=== PATIENT | female | born 1975 | race Caucasian/White ===

== ENCOUNTER 2016-11-12 19:13 | Emergency (ER) | payer OTHER ==
[2016-11-12 20:10] VITALS: BP 123/74
--- NOTE | 2016-11-12 20:20 | UC ---
Throat Pain/Nasal Rafael HPI - HPI Summary HPI Summary: complaint of coughing and nasal congestion that started yesterday sore throat from coughing intermittent headache coughing so hard that she is vomiting 3-4x today, able to drink fluids' feels nauseated, several bouts of diarrhea denies fever and chills took some ibuprofen with minimal relief - History of Current Complaint Chief Complaint: UCRespiratory Stated Complaint: COUGH VOMITING Hx Obtained From: Patient Hx Last Menstrual Period: 11/11/16 - Allergies/Home Medications Allergies/Adverse Reactions: Allergies Allergy/AdvReac Type Severity Reaction Status Date / Time No Known Allergies Allergy Verified 11/12/16 20:10 Home Medications: Home Medications Ibuprofen TAB* [Advil TAB*] 800 mg PO PRN 11/12/16 [History] PMH/Surg Hx/FS Hx/Imm Hx Previously Healthy: Yes Endocrine History Of: Denies: Diabetes, Thyroid Disease Cardiovascular History Of: Denies: Cardiac Disorders, Hypertension Respiratory History Of: Denies: COPD, Asthma GI/ History Of: Reports: Kidney Stones Denies: Ulcer - Surgical History Surgical History: Yes Surgery Procedure, Year, and Place: kidney stones removed on right, kidney "blasting" on the left - 1 year ago - Family History Known Family History: Negative: Cardiac Disease, Hypertension, Diabetes - Social History Occupation: Employed Full-time Lives: With Family Alcohol Use: None Substance Use Type: None Smoking Status (MU): Current Every Day Smoker Type: Cigarettes Amount Used/How Often: 5 CIG/DAY Length of Time of Smoking/Using Tobacco: 5 years Have You Smoked in the Last Year: No When Did the Patient Quit Smoking/Using Tobacco: 1.5 years ago Cessation Counseling: Patient Advised to Stop Review of Systems Constitutional: Fatigue Skin: Negative Eyes: Negative ENT: Sore Throat, Nasal Discharge Respiratory: Cough Cardiovascular: Negative Gastrointestinal: Vomiting Genitourinary: Negative Motor: Negative Neurovascular: Negative Musculoskeletal: Negative Neurological: Headache Psychological: Negative All Other Systems Reviewed And Are Negative: Yes Physical Exam Triage Information Reviewed: Yes Appearance: No Pain Distress, Well-Nourished Vital Signs: Initial Vital Signs Temp 97.4 F 11/12/16 20:07 Pulse 98 11/12/16 20:07 Resp 16 11/12/16 20:07 BP 123/74 11/12/16 20:07 Pulse Ox 97 11/12/16 20:07 Vital Signs Reviewed: Yes Eyes: Positive: Conjunctiva Clear ENT: Positive: Pharyngeal erythema, Nasal congestion, TMs normal Neck: Positive: No Lymphadenopathy Respiratory: Positive: Rhonchi - scattered rhonchi RLL, Wheezing Cardiovascular: Positive: RRR, No Murmur, Pulses Normal Abdomen Description: Positive: Nontender, No Organomegaly, Soft. Negative: CVA Tenderness (R), CVA Tenderness (L), Distended, Guarding Bowel Sounds: Positive: Present. Negative: Hyperactive Musculoskeletal: Positive: No Edema Neurological: Positive: Alert Psychological Exam: Normal Skin Exam: Normal Throat Pain/Nasal Course/Dx - Course Course Of Treatment: exam completed. will rx for anx nad inhaler bronchitis- smoker - Differential Dx/Diagnosis Differential Diagnosis/HQI/PQRI: Pharyngitis, Sinusitis, Tonsillitis, URI Provider Diagnoses: bronchitis, gastroenteritis Discharge - Discharge Plan Condition: Stable Disposition: LONG TERM FACILITY Prescriptions: Azithromycin TAB* [Zithromax TAB (Z-ANNE) 250 mg #6 tabs] 2 tab PO .TODAY, THEN 1 DAILY #1 anne Patient Education Materials: Acute Bronchitis (ED), Wheezing (ED), How to Use a Nebulizer (ED), Acute Nausea and Vomiting (ED) Forms: *Work Release Referrals: Sara Anderson MD [Medical Doctor] - Additional Instructions: Please take antibiotic as directed Use your albuterol inhaler every 4-6 hours when needed for wheezing, shortness of breath or uncontrolled coughing. start zofran and increase fluids Increase fluids and rest Take acetaminophen or ibuprofen for fever or pain Please review your discharge instructions. If your symptoms do not improve please call your primary care provider or return to urgent care.
[2016-11-12] MEDS ORDERED: Ondansetron ODT TAB* 4 MG PO ONE ×2 (20:28→20:38)
[2016-11-12] MEDS ORDERED: Albuterol HFA INHALER* 8 gm MDI INH ONE (20:29)
== END 2016-11-12 20:40 | disposition home or self-care (01) ==
LOC: UCEAST 19:13
DX: J40 Bronchitis, not specified as acute or chronic (principal); K52.9 Noninfective gastroenteritis and colitis, unspecified; F17.210 Nicotine dependence, cigarettes, uncomplicated
CPT/HCPCS: 99213; A9270-GY; G0463

== ENCOUNTER 2018-07-18 14:36 | Emergency (ER) | payer SELFPAY ==
[2018-07-18 14:53] VITALS: BP 110/65
--- NOTE | 2018-07-18 15:06 | ED ---
Upper Extremity Pain - HPI Summary HPI Summary: [id number] patient presents with left elbow pain status post injury at work today. She reports she was lifting an iced tea been when she felt pain in her elbow. This did not linger and she was able to continue to keep working until about 10:30 when she straightened her arm forcefully and felt return of pain that lingered and progressed throughout the day. She denies numbness, tingling, weakness. She feels better with her elbow in a 90 position and worse when flexing or extending beyond this. (Extension worse than flexion). - History of Current Complaint Chief Complaint: UCUpperExtremity Stated Complaint: ELBOW INJURY Time Seen by Provider: 07/18/18 14:54 Hx Obtained From: Patient Hx Last Menstrual Period: 06/28/18 - Allergies/Home Medications Allergies/Adverse Reactions: Allergies Allergy/AdvReac Type Severity Reaction Status Date / Time No Known Allergies Allergy Verified 07/18/18 14:53 Home Medications: Home Medications NK [No Home Medications Reported] 07/18/18 [History Confirmed 07/18/18] PMH/Surg Hx/FS Hx/Imm Hx Previously Healthy: Yes Endocrine/Hematology History: Denies: Hx Anticoagulant Therapy, Hx Blood Disorders, Hx Diabetes, Hx Thyroid Disease Cardiovascular History: Denies: Hx Hypertension Respiratory History: Denies: Hx Asthma, Hx Chronic Obstructive Pulmonary Disease (COPD) GI History: Denies: Hx Ulcer History: Reports: Hx Kidney Stones - Surgical History Surgery Procedure, Year, and Place: kidney stones removed on right, kidney "blasting" on the left - 1 year ago Infectious Disease History: No Infectious Disease History: Denies: Hx Clostridium Difficile, Hx Hepatitis, Hx Human Immunodeficiency Virus (HIV), Hx of Known/Suspected MRSA, Hx Shingles, Hx Tuberculosis, Hx Known/ Suspected VRE, Hx Known/Suspected VRSA, History Other Infectious Disease, Traveled Outside the [place] in Last 30 Days - Family History Known Family History: Positive: Unknown Negative: Cardiac Disease, Hypertension, Diabetes - Social History Occupation: Employed Full-time - fast food Lives: With Family Alcohol Use: None Hx Substance Use: No Substance Use Type: Reports: None Hx Tobacco Use: Yes Smoking Status (MU): Current Every Day Smoker Type: Cigarettes Amount Used/How Often: 5 CIG/DAY Length of Time of Smoking/Using Tobacco: 5 years Have You Smoked in the Last Year: No Review of Systems Constitutional: Negative Positive: no symptoms reported Positive: Arthralgia Skin: Negative Neurological: Negative Psychological: Normal All Other Systems Reviewed And Are Negative: Yes Physical Exam Triage Information Reviewed: Yes Vital Signs On Initial Exam: Initial Vitals Temp Pulse Resp BP Pulse Ox 98.2 F 90 12 110/65 99 07/18/18 14:47 07/18/18 14:47 07/18/18 14:47 07/18/18 14:47 07/18/18 14:47 Vital Signs Reviewed: Yes Appearance: Positive: Well-Appearing, Pain Distress - no pain at rest- holding Lt arm in flexed position at 90 degrees which feels best Skin: Positive: Warm, Skin Color Reflects Adequate Perfusion, Dry - no erythema , no ecchymosis, edema, no skin breakdown over affected area Head/Face: Positive: Normal Head/Face Inspection Eyes: Positive: EOMI ENT: Positive: Hearing grossly normal Respiratory/Lung Sounds: Positive: Breath Sounds Present Cardiovascular: Positive: Pulses are Symmetrical in both Upper and Lower Extremities Musculoskeletal: Positive: Strength/ROM Intact, Pain @ - distal tricep tendon insertion TTP - no gross deformity - no weakness Neurological: Positive: Normal, Sensory/Motor Intact, Alert, Oriented to Person Place, Time, CN Intact II-III Psychiatric: Positive: Normal Diagnostics - Vital Signs Vital Signs Temp Pulse Resp BP Pulse Ox 07/18/18 14:47 98.2 F 90 12 110/65 99 - Laboratory Lab Statement: Any lab studies that have been ordered have been reviewed, and results considered in the medical decision making process. Course/Dx - Course Course Of Treatment: XR: no fx, no OA, no effusion. suspect strain - Diagnoses Provider Diagnoses: Strain of left elbow Discharge - Sign-Out/Discharge Documenting (check all that apply): Patient Departure All imaging exams completed and their final reports reviewed: Yes - Discharge Plan Condition: Stable Disposition: HOME Patient Education Materials: Elbow Sprain (ED), How to Use a Sling (ED) Forms: *Work Release Referrals: [facility] [Outside] Additional Instructions: REST, ICE, ELEVATE AND YULISSA WRAP FOR COMFORT NEEDED. You may use sling over next 48 hours but be sure to remove arm from sling for gentle stretches to prevent stiffness and weakness You may take ibuprofen alternating with acetaminophen as needed for pain Call [facility] tomorrow to schedule follow-up in 1 week. *If you develop numbness, tingling, weakness, swelling or skin discoloration, remove YULISSA wrap and elevate arm for 20 minutes. If symptoms persist, return to ED - Billing Disposition and Condition Condition: STABLE Disposition: Home
--- NOTE | 2018-07-18 15:33 | RAD ---
INDICATION: Left elbow injury. TECHNIQUE: 4 views of the left elbow were obtained. FINDINGS: The bones are in normal alignment. No joint effusion or fracture is seen. Joint spaces appear maintained. IMPRESSION: NO EVIDENCE FOR FRACTURE.
== END 2018-07-18 16:00 | disposition home or self-care (01) ==
LOC: UCEAST 14:36
DX: S56.912A Strain of unspecified muscles, fascia and tendons at forearm level, left arm, initial encounter (principal); X50.9XXA Other and unspecified overexertion or strenuous movements or postures, initial encounter; Y92.9 Unspecified place or not applicable; Y99.0 Civilian activity done for income or pay; F17.200 Nicotine dependence, unspecified, uncomplicated
CPT/HCPCS: 99213; G0463

== ENCOUNTER 2018-10-01 08:34 | Emergency (ER) | payer SELFPAY ==
[2018-10-01 08:47] VITALS: BP 124/69
--- NOTE | 2018-10-01 09:06 | UC ---
Throat Pain/Nasal Rafael HPI - HPI Summary HPI Summary: 43-year-old female presents with 4 day history of headache, nasal congestion, sinus pressure, sore throat, and a nonproductive cough. Denies fever, chills, ear pain, chest pain, shortness of breath, abdominal pain, nausea, or vomiting. - History of Current Complaint Chief Complaint: UCRespiratory Stated Complaint: URI Time Seen by Provider: 10/01/18 08:39 Hx Obtained From: Patient Hx Last Menstrual Period: 09/19/18 Pain Intensity: 6 - Allergies/Home Medications Allergies/Adverse Reactions: Allergies Allergy/AdvReac Type Severity Reaction Status Date / Time No Known Allergies Allergy Verified 07/18/18 14:53 Home Medications: Home Medications Ibuprofen TAB* [Motrin TAB* 600 MG] 10/01/18 [History] PMH/Surg Hx/FS Hx/Imm Hx Previously Healthy: Yes GI/ History: Kidney Stones Other History Of: Negative For: Anticoagulant Therapy - Surgical History Surgical History: Yes Surgery Procedure, Year, and Place: kidney stones removed on right, kidney "blasting" on the left - 1 year ago - Family History Known Family History: Positive: Non-Contributory - Social History Occupation: Employed Full-time Lives: With Family Alcohol Use: None Substance Use Type: None Smoking Status (MU): Current Every Day Smoker Type: Cigarettes Amount Used/How Often: 5 CIG/DAY Length of Time of Smoking/Using Tobacco: 5 years Have You Smoked in the Last Year: No When Did the Patient Quit Smoking/Using Tobacco: 1.5 years ago Household Exposure Type: Cigarettes Review of Systems All Other Systems Reviewed And Are Negative: Yes Constitutional: Positive: Fatigue. Negative: Fever, Chills Eyes: Negative: Drainage, Eye Redness ENT: Positive: Sore Throat, Nasal Discharge, Sinus Congestion. Negative: Ear Ache, Sinus Pain/Tenderness Respiratory: Positive: Cough. Negative: Shortness Of Breath Cardiovascular: Negative: Palpitations, Chest Pain Gastrointestinal: Negative: Abdominal Pain, Vomiting, Diarrhea, Nausea Neurological: Positive: Headache Is Patient Immunocompromised?: No Physical Exam - Summary Physical Exam Summary: GENERAL APPEARANCE: Well developed, well nourished, alert and cooperative, and appears to be in no acute distress. EYES: Conjunctiva clear. No discharge. Vision is grossly intact. EARS: External auditory canals and tympanic membranes clear, hearing grossly intact. NOSE: Mild-moderate nasal cogestion with mucosal erythema and edema. No nasal discharge or sinus tenderness to percussion. THROAT: Mild pharyngeal erythema with cobblestoning. No tonsilar inflammation, swelling, exudate, or lesions. NECK: Neck supple, non-tender without lymphadenopathy. CARDIAC: Normal S1 and S2. No S3, S4 or murmurs. Rhythm is regular. There is no peripheral edema, cyanosis or pallor. Extremities are warm and well perfused. Capillary refill is less than 2 seconds. LUNGS: Clear to auscultation and percussion without rales, rhonchi, wheezing or diminished breath sounds. ABDOMEN: Positive bowel sounds. Soft, nondistended, nontender. No guarding or rebound. No masses or hepatosplenomegally. MUSKULOSKELETAL: ROM intact to all extremities. No joint erythema or tenderness. Normal muscular development. Normal gait. SKIN: Skin normal color, texture and turgor with no lesions or eruptions. Triage Information Reviewed: Yes Vital Signs: Initial Vital Signs Temp 98.6 F 10/01/18 08:40 Pulse 88 10/01/18 08:40 Resp 16 10/01/18 08:40 BP 124/69 10/01/18 08:40 Pulse Ox 100 10/01/18 08:40 Vital Signs Reviewed: Yes Throat Pain/Nasal Course/Dx - Course Course Of Treatment: 43-year-old female presents with 4 day history of headache , nasal congestion, sinus pressure, sore throat, and a nonproductive cough. Denies fever, chills, ear pain, chest pain, shortness of breath, abdominal pain , nausea, or vomiting. Afebrile. Vital signs stable. Exam revealed mild to moderate nasal congestion and mucosal erythema and edema, mild pharyngeal erythema with some cobblestoning, and a nonproductive cough. Bilateral breath sounds were clear. Recommending symptomatically treat for viral upper respiratory infection including saline rinses, fluticasone nasal spray, over-the -counter decongestant, saltwater gargles, [id number] analgesics, and Tessalon Perles 1 Every 8 hours as needed for cough. She is to follow-up with her primary care provider in 7 days if symptoms persist. Warning symptoms were reviewed with the patient. Verbalizes understanding and agrees with plan of care. - Differential Dx/Diagnosis Differential Diagnosis/HQI/PQRI: Influenza, Otitis Media, Pharyngitis, Sinusitis , Tonsillitis, URI Provider Diagnosis: Viral URI with cough Discharge - Sign-Out/Discharge Documenting (check all that apply): Patient Departure All imaging exams completed and their final reports reviewed: No Studies - Discharge Plan Condition: Stable Disposition: HOME Prescriptions: Benzonatate CAP* [Tessalon 100 MG CAP*] 100 mg PO TID PRN #21 cap PRN Reason: Cough Fluticasone NASAL SPRAY 50MCG* [Flonase NASAL SPRAY 50MCG*] 2 spray BOTH NARES DAILY #1 btl Patient Education Materials: Upper Respiratory Infection (ED) Forms: *Work Release Referrals: No Primary Care Phys,NOPCP [Primary Care Provider] - Additional Instructions: Your history and exam are consistent with a viral upper respiratory infection. Viral infections do not respond to antibiotics and are limited to the treatment of symptoms. Viral infections typically run their course in 7-10 days. Drink plenty of fluids to avoid dehydration especially if you are running any fever. Use a saline rinse kit such as Neti Pot or NeilMed at least twice a day to help thin secretions and promote drainage of the sinuses. Use fluticasone (Flonase) nasal spray 2 sprays each nostril once daily. Take over the counter acetaminophen (Tylenol) or ibuprofen (Advil, Motrin) according to directions as needed for pain or fever. Use salt water gargles several times a day if you have a sore throat. You may also use Chloraseptic spray or Cepacol lonzenges according to directions which contain a numbing medication and can provide some temporary relief from your sore throat. Use Tessalon Perles 1 cap every 8 hours as needed for cough. Follow up with your primary care provider in 7 days if symptoms persist. Seek immediate medical attention in the emergency room if you have fever greater than 100.5 F despite taking acetaminophen or ibuprofen, have chest pain , difficulty breathing, are unable to swallow, or have any worsening of symptoms. - Billing Disposition and Condition Condition: STABLE Disposition: Home
== END 2018-10-01 09:10 | disposition home or self-care (01) ==
LOC: UCEAST 08:34
DX: J06.9 Acute upper respiratory infection, unspecified (principal); R05 Cough; F17.210 Nicotine dependence, cigarettes, uncomplicated
CPT/HCPCS: 99212; G0463

== ENCOUNTER 2018-11-17 19:19 | Emergency (ER) | payer SELFPAY ==
[2018-11-17 19:55] VITALS: BP 125/77
[2018-11-17] MEDS ORDERED: Acetaminophen TAB* 325 MG PO ONE (20:00)
--- NOTE | 2018-11-17 20:00 | UC ---
Dental HPI - HPI Summary HPI Summary: 43-year-old female with chief complaint of right-sided lower jaw swelling that began today. She states that she has poor dentition and has had multiple dental abscesses in the past. Generally they will drain on their own. She did take ibuprofen just prior to arrival and that took her pain from a 10 to a 5. She has not had any fever shakes or chills and has had no drainage from the wound. She has been able to eat and drink normally. She does not currently have a dentist. She is a smoker. - History of Current Complaint Chief Complaint: UCDentalProblem Stated Complaint: SKIN COMPLAINT Time Seen by Provider: 11/17/18 19:48 Hx Obtained From: Patient Hx Last Menstrual Period: 09/19/18 Pain Intensity: 5 - Allergies/Home Medications Allergies/Adverse Reactions: Allergies Allergy/AdvReac Type Severity Reaction Status Date / Time No Known Allergies Allergy Verified 11/17/18 19:56 PMH/Surg Hx/FS Hx/Imm Hx - Additional Past Medical History Additional PMH: Recurrent dental abscess, dental caries Previously Healthy: Yes Other History Of: Negative For: Anticoagulant Therapy - Surgical History Surgical History: Yes Surgery Procedure, Year, and Place: kidney stones removed on right, kidney "blasting" on the left - 2009 - Family History Known Family History: Positive: Unknown, Non-Contributory Negative: Cardiac Disease, Hypertension, Diabetes - Social History Occupation: Employed Full-time Alcohol Use: None Substance Use Type: None Smoking Status (MU): Light Every Day Tobacco Smoker Type: Cigarettes Amount Used/How Often: 5 CIG/DAY Length of Time of Smoking/Using Tobacco: 5 years Have You Smoked in the Last Year: No When Did the Patient Quit Smoking/Using Tobacco: 1.5 years ago Household Exposure Type: Cigarettes Review of Systems All Other Systems Reviewed And Are Negative: Yes Constitutional: Positive: Negative Eyes: Positive: Negative ENT: Positive: Dental Pain. Negative: Sore Throat, Nasal Discharge, Sinus Congestion Respiratory: Positive: Negative Cardiovascular: Positive: Negative Is Patient Immunocompromised?: No Physical Exam Triage Information Reviewed: Yes Appearance: Well-Appearing, No Pain Distress, Well-Nourished Vital Signs: Initial Vital Signs Temp 98.4 F 11/17/18 19:48 Pulse 101 11/17/18 19:48 Resp 16 11/17/18 19:48 BP 125/77 11/17/18 19:48 Pulse Ox 100 11/17/18 19:48 Vital Signs Reviewed: Yes Eye Exam: Normal ENT: Positive: Pharynx normal. Negative: Nasal congestion, Nasal drainage Dental: Positive: Other: - Widespread dental erosion in caries with swelling tenderness and erythema adjacent to the right lower first molar and second premolar. There is no pointing or fluctuance in the area. Widespread gingivitis. Neck: Positive: No Lymphadenopathy Respiratory: Positive: Lungs clear Cardiovascular: Positive: RRR Musculoskeletal: Positive: ROM Intact Neurological: Positive: Alert Skin Exam: Normal Dental Complaint Course/Dx - Course Course Of Treatment: Nurse's notes reviewed. Patient with dental abscess not yet pointing. Start antibiotics. Treat with NSAIDs, Tylenol. Follow up dental /oral surgery. - Differential Dx/Diagnosis Provider Diagnosis: Dental abscess, Dental caries Discharge - Sign-Out/Discharge Documenting (check all that apply): Patient Departure All imaging exams completed and their final reports reviewed: No Studies - Discharge Plan Condition: Improved Disposition: HOME Prescriptions: Naproxen [Naproxen 500 mg tab] 500 mg PO BID PRN #12 tablet PRN Reason: Pain Penicillin VK 500 MG TAB(NF) [Penicillin VK 500 mg Tab] 500 mg PO QID #40 tab Patient Education Materials: Dental Abscess (ED) Referrals: Nghia Mendze DDS [Medical Doctor] - Jayro Frazier MD [Doctor of Dental Medicine] - Additional Instructions: Saltwater gargles. Tylenol can be taken. Do not take ibuprofen with the prescribed Naprosyn. Antibiotic may cause drainage from the abscess. See the dentist/oral surgeon for evaluation of the teeth for possible extractions. Return with high fever, increased swelling, worse or other concerns. - Billing Disposition and Condition Condition: IMPROVED Disposition: Home - Attestation Statements Document Initiated by Scribe: No
== END 2018-11-17 20:10 | disposition home or self-care (01) ==
LOC: UCEAST 19:19
DX: K04.7 Periapical abscess without sinus (principal); F17.210 Nicotine dependence, cigarettes, uncomplicated
CPT/HCPCS: 99212; G0463

== ENCOUNTER 2018-12-29 07:21 | Emergency (ER) | payer SELFPAY ==
[2018-12-29] MEDS ORDERED: Ibuprofen TAB* 600 MG PO ONE (08:57)
--- NOTE | 2018-12-29 09:35 | UC ---
Cardiac HPI - HPI Summary HPI Summary: 2 DAYS OF INTERMITTENT DIFFUSE ANTERIOR CHEST PAIN. DESCRIBED SHARP. WORSE WITH MOVEMENT, INSPIRATION AND COUGHING. DENIES SHORTNESS OF BREATH, NAUSEA, DIZZINESS, SWEATS. NO RECENT TRAUMA OR INJURY SHE CAN REMEMBER. - History of Current Complaint Chief Complaint: UCChestPain Stated Complaint: BILATERAL CHEST PAIN Time Seen by Provider: 12/29/18 07:40 Hx Obtained From: Patient Hx Last Menstrual Period: ended yesterday Onset/Duration: Gradual Onset, Lasting Days, Still Present Initial Severity: Moderate Current Severity: Moderate Pain Intensity: 7 Chest Pain Location: Diffuse Character: Sharp/Stabbing Aggravating Factor(s): Movement, Deep Breaths Alleviating Factor(s): Rest Associated Signs & Symptoms: Positive: Chest Pain. Negative: Anxiety, Numbness , Tingling, Dizziness, SOB, Syncope, Fever, Diaphoresis, Nausea/Vomiting, Palpitations, Cough, Hemoptysis - Allergy/Home Medications Allergies/Adverse Reactions: Allergies Allergy/AdvReac Type Severity Reaction Status Date / Time No Known Allergies Allergy Verified 12/29/18 08:20 PMH/Surg Hx/FS Hx/Imm Hx GI/ History: Kidney Stones Other History Of: Negative For: Anticoagulant Therapy - Surgical History Surgical History: Yes Surgery Procedure, Year, and Place: kidney stones removed on right, kidney "blasting" on the left - 2009 - Family History Known Family History: Positive: Diabetes Negative: Cardiac Disease, Hypertension - Social History Alcohol Use: Rare Substance Use Type: None Smoking Status (MU): Light Every Day Tobacco Smoker Type: Cigarettes Amount Used/How Often: 5 CIG/DAY Length of Time of Smoking/Using Tobacco: 5 years Have You Smoked in the Last Year: No When Did the Patient Quit Smoking/Using Tobacco: 1.5 years ago Household Exposure Type: Cigarettes Review of Systems All Other Systems Reviewed And Are Negative: Yes Constitutional: Positive: Negative Skin: Positive: Negative Respiratory: Positive: Negative Cardiovascular: Positive: Chest Pain Gastrointestinal: Positive: Negative Physical Exam Triage Information Reviewed: Yes Appearance: Well-Appearing, No Pain Distress, Well-Nourished Vital Signs: Initial Vital Signs Temp 97.7 F 12/29/18 07:28 Pulse 89 12/29/18 07:28 Resp 16 12/29/18 07:28 BP 108/55 12/29/18 07:28 Pulse Ox 100 12/29/18 07:28 Vital Signs Reviewed: Yes Eyes: Positive: Conjunctiva Clear ENT: Positive: Hearing grossly normal Neck: Positive: Supple Respiratory: Positive: Lungs clear, Normal breath sounds, No respiratory distress, No accessory muscle use, Other: - ANTERIOR CHEST TENDER Cardiovascular Exam: Normal Abdomen Description: Positive: Soft Musculoskeletal: Positive: No Edema Neurological: Positive: Alert Psychological: Positive: Age Appropriate Behavior Skin: Negative: Rashes Diagnostics - Radiology CXR Radiology Interpretation Completed By: Radiologist Summary of Radiographic Findings: No evidence for acute intrathoracic disease. - EKG Cardiac Rate: NL - 83BPM Cardiac Rhythm: Sinus: Normal Ectopy: None ST Segment: Normal - Assessment/Plan Course Of Treatment: LOW SUSPICION FOR ANY CARDIAC ETIOLOGY OF PATIENT'S SYMPTOMS. CLINICALLY MORE CONSISTENT WITH CHEST WALL PAIN. ADVISED OTC ANALGESICS FOR DISCOMFORT. REST, NO HEAVY LIFTING. TO THE ER IF SYMPTOMS WORSEN. - Clinical Impression Provider Diagnosis: Chest wall pain Discharge - Sign-Out/Discharge Documenting (check all that apply): Patient Departure All imaging exams completed and their final reports reviewed: Yes - Discharge Plan Condition: Stable Disposition: HOME Patient Education Materials: Noncardiac Chest Pain (ED), Chest Wall Pain (ED) Forms: *Work Release Referrals: No Primary Care Phys,NOPCP [Primary Care Provider] - Additional Instructions: EKG TODAY UNREMARKABLE. CHEST X-RAY ALSO UNREMARKABLE. YOUR HISTORY AND PHYSICAL EXAM ARE MOST CONSISTENT WITH NONCARDIAC CHEST WALL PAIN. TAKE OTC MEDICATIONS NEEDED FOR DISCOMFORT. REST, AVOID HEAVY LIFTING. YOUR SYMPTOMS SHOULD IMPROVE OVER THE NEXT FEW DAYS. GO TO THE ER WITHOUT FAIL IF YOU DEVELOP WORSENING PAIN, SHORTNESS OF BREATH, NAUSEA, SWEATS, FEVER, DIZZINESS OR ANY OTHER CONCERNING SYMPTOMS. CALL THE NUMBER BELOW FOR ASSISTANCE IN ESTABLISHING WITH A PCP An additional resource available to assist in finding the appropriate physician for your health care needs is the [facility] ([facility]). You may contact them by calling [phone]. - Billing Disposition and Condition Condition: STABLE Disposition: Home
[2018-12-29 09:38] VITALS: BP 107/59
== END 2018-12-29 09:44 | disposition home or self-care (01) ==
LOC: UCEAST 07:21
DX: R07.89 Other chest pain (principal); F17.210 Nicotine dependence, cigarettes, uncomplicated
CPT/HCPCS: 71046; 93005; 99212; A9270-GY; G0463

== ENCOUNTER 2019-03-15 12:35 | Emergency (ER) | payer SELFPAY ==
--- NOTE | 2019-03-15 12:46 | UC ---
Lower Extremity/Ankle HPI - HPI Summary HPI Summary: 43 yo female presents with RIGHT foot pain. She tells me that about 1 week ago she was horsing around with her young teenage son and went to kick him. Son blocked it and impacted pt's top of right foot. Since that time has had pain in this area that is worse with weight bearing. She has taken ibuprofen and iced the area with little relief - History of Current Complaint Stated Complaint: FOOT INJURY Time Seen by Provider: 03/15/19 12:46 Hx Obtained From: Patient Hx Last Menstrual Period: ended yesterday Onset/Duration: Sudden Onset Severity Initially: Moderate Severity Currently: Moderate Pain Intensity: 6 Pain Scale Used: 0-10 Numeric - Allergies/Home Medications Allergies/Adverse Reactions: Allergies Allergy/AdvReac Type Severity Reaction Status Date / Time No Known Allergies Allergy Verified 03/15/19 12:48 Home Medications: Home Medications Ibuprofen TAB* [Advil TAB*] 200 mg PO Q6H PRN 03/15/19 [History Confirmed ] PMH/Surg Hx/FS Hx/Imm Hx - Additional Past Medical History Additional PMH: None Other History Of: Negative For: Anticoagulant Therapy - Surgical History Surgical History: Yes Surgery Procedure, Year, and Place: kidney stones removed on right, kidney "blasting" on the left - 2009 - Family History Known Family History: Positive: Unknown, Diabetes, Non-Contributory Negative: Cardiac Disease, Hypertension - Social History Occupation: Employed Full-time Lives: With Family Alcohol Use: Rare Substance Use Type: None Smoking Status (MU): Light Every Day Tobacco Smoker Type: Cigarettes Amount Used/How Often: 5 CIG/DAY Length of Time of Smoking/Using Tobacco: 5 years Have You Smoked in the Last Year: No When Did the Patient Quit Smoking/Using Tobacco: 1.5 years ago Household Exposure Type: Cigarettes Review of Systems All Other Systems Reviewed And Are Negative: Yes Constitutional: Positive: Negative Skin: Positive: Negative Respiratory: Positive: Negative Cardiovascular: Positive: Negative Neurovascular: Positive: Negative Musculoskeletal: Positive: Other: - right foot pain Neurological: Positive: Negative Psychological: Positive: Negative Physical Exam - Summary Physical Exam Summary: GENERAL: NAD. WDWN. No pain distress. SKIN: No rashes, sores, lesions, or open wounds. CHEST: No accessory muscle use. Breathing comfortably and in no distress. CV: Pulses intact PT and DP. Cap refill <2seconds MSK: RIGHT FOOT: Mild TTP anterior navicular bone. FROM at right ankle. Strength 5/5. No edema or obvious bony deformities. NEURO: Alert. Sensations intact and symmetric B/L LEs PSYCH: Age appropriate behavior. Triage Information Reviewed: Yes Vital Signs: Vital Signs: Temp Pulse Resp BP Pulse Ox 98.5 F 84 16 115/65 99 03/15/19 12:41 03/15/19 12:41 03/15/19 12:41 03/15/19 12:41 03/15/19 12:41 Vital Signs Reviewed: Yes Lower Extremity Course/Dx - Course Course Of Treatment: XR: IMPRESSION: NO ACUTE OSSEOUS INJURY. IF SYMPTOMS PERSIST, RECOMMEND REPEAT IMAGING. Discussed results with pt. She is asking for 5 days off of work ([employer]) - we agreed upon 2 as she has the 3rd day off and her injury was 1 week ago and she has been attending work since. Suspect strain/contusion of foot. Pt was placed in a CAM boot for discomfort and advised to RICE and f/u with Orthopedics if symptoms do not improve. - Differential Dx/Diagnosis Provider Diagnosis: Foot pain Discharge - Sign-Out/Discharge Documenting (check all that apply): Patient Departure All imaging exams completed and their final reports reviewed: Yes - Discharge Plan Condition: Stable Disposition: HOME Patient Education Materials: Foot Contusion (ED) Forms: *Work Release Referrals: No Primary Care Phys,NOPCP [Primary Care Provider] - Jose Edwards MD [Medical Doctor] - If Needed Additional Instructions: If you develop a fever, shortness of breath, chest pain, new or worsening symptoms - please call your PCP or go to the ED immediately. 1) Continue to rest, ice, and elevate your foot to reduce pain. 2) Use the CAM boot as needed for discomfort 3) If your symptoms do not improve in 3-5 days, please call Orthopedics at the number below to schedule an appointment for a recheck - Billing Disposition and Condition Condition: STABLE Disposition: Home
[2019-03-15 12:48] VITALS: BP 115/65
== END 2019-03-15 13:32 | disposition home or self-care (01) ==
LOC: UCEAST 12:35
DX: M79.671 Pain in right foot (principal); Y93.83 Activity, rough housing and horseplay; Y92.9 Unspecified place or not applicable; F17.210 Nicotine dependence, cigarettes, uncomplicated
CPT/HCPCS: 99212; G0463

== ENCOUNTER 2019-06-21 21:02 | Emergency (ER) | payer OTHER ==
--- NOTE | 2019-06-21 21:11 | UC ---
Nausea/Vomiting/Diarrhea HPI - HPI Summary HPI Summary: Patient presents to urgent care stating at 5am she woke up with nausea vomiting diarrhea. Patient states she's vomited approximately 15 times during the day today. Patient denies blood or bilious in her vomit. Patient has also had diarrhea. No blood or black stools. Patient states she has some abdominal cramping and released by diarrhea. Last episode of vomiting or diarrhea was at 5 PM. Patient states her had the same symptoms yesterday but was better today. Patient has been sipping on some water without emesis this evening. No fevers or chills. No ear pain. No head congestion. No dysuria or hematuria. No vaginal discharge, itching, odor. Patient works in [employer]. Patient's medications reviewed this visit. Patient without any recent travel or antibiotics. - History of Current Complaint Stated Complaint: VOMITING Time Seen by Provider: 06/21/19 21:10 Hx Obtained From: Patient Hx Last Menstrual Period: ended yesterday ?: No Onset/Duration: Sudden Onset, Lasting Hours Severity Initially: Moderate Severity Currently: Mild - Allergies/Home Medications Allergies/Adverse Reactions: Allergies Allergy/AdvReac Type Severity Reaction Status Date / Time No Known Allergies Allergy Verified 06/21/19 21:19 Home Medications: Home Medications NK [No Home Medications Reported] 06/21/19 [History Confirmed 06/21/19] PMH/Surg Hx/FS Hx/Imm Hx Previously Healthy: Yes Other History Of: Negative For: Anticoagulant Therapy - Surgical History Surgical History: Yes Surgery Procedure, Year, and Place: kidney stones removed on right, kidney "blasting" on the left - 2009 - Family History Known Family History: Positive: Unknown, Diabetes, Non-Contributory Negative: Cardiac Disease, Hypertension - Social History Occupation: Employed Full-time Lives: With Family Alcohol Use: Rare Substance Use Type: None Smoking Status (MU): Light Every Day Tobacco Smoker Type: Cigarettes Amount Used/How Often: 5 CIG/DAY Length of Time of Smoking/Using Tobacco: 5 years Have You Smoked in the Last Year: No When Did the Patient Quit Smoking/Using Tobacco: 1.5 years ago Household Exposure Type: Cigarettes Review of Systems All Other Systems Reviewed And Are Negative: Yes Constitutional: Positive: Negative Skin: Positive: Negative Gastrointestinal: Positive: Abdominal Pain - cramping relieved by BM, Vomiting, Diarrhea, Nausea Physical Exam - Summary Physical Exam Summary: Vital Signs Reviewed: Yes A+Ox3, no distress Eyes: Conjunctiva Clear, VANESA. EOM intact and full ENT: Hearing grossly normal TM x 2 clear, lips dry, mmpasty, uvula midline, no exudate, no erythema Neck: Positive: Supple Respiratory: Positive: No respiratory distress, No accessory muscle use + CTA throughout no w/r Cardiovascular: RRR nl s1, s2 no m/r CBT <2 sec abd soft + BS nt/nd no guarding, no distension Musculoskeletal Exam: ETIENNE x 4 without difficulty Strength Intact, ROM Intact Neurological: Positive: Alert, + sensation throughout Psychological: Positive: Normal Response To examiner Skin: Positive: no rash, no ecchymosis * Triage Information Reviewed: Yes Re-Evaluation - Re-Evaluation First Eval Change: Improved - zofran improved - tolerating ice chips will disp 2 to go return precautions pt comfortable and in agreement with plan Naus/Vom/Diarrhea Course/Dx - Course Course Of Treatment: Patient presents to urgent care stating she's had nausea vomiting throughout the day today. Patient's last episode of emesis was 5 PM. Patient states her had similar symptoms yesterday but they resolved. Patient without fevers or chills. Patient abdominal discomfort resolved by BM VSS pt appears mild dehydrated - non concerning exam will give zofran - po trial urine clears to bland work note zofran to go if improved strict return precautions - Differential Dx/Diagnosis Provider Diagnosis: Nausea & vomiting, Diarrhea Condition At Discharge: Stable Discharge ED - Sign-Out/Discharge Documenting (check all that apply): Patient Departure All imaging exams completed and their final reports reviewed: No Studies - Discharge Plan Condition: Stable Disposition: HOME Patient Education Materials: Acute Nausea and Vomiting (ED) Forms: *Work Release Referrals: [facility] [place] [facility] [Outside] No Primary Care Phys,NOPCP [Primary Care Provider] - Additional Instructions: - : For the first 6 hours, eat and drink clears (water, jina greg, soup broth, jello, popsicles, Gatorade). If you tolerate this okay, add bland foods such as dry toast, scrambled eggs, crackers. Wait until you are feeling better for 24 hours before eating spicy food, acidic food, tomato based food, fried food. - Take medication as prescribed for nausea - get plenty of restful sleep - Thorough hand washing is important - These infections are spread by oral secretions. Do not share eating or drinking utensils. Frequent hand washing is important. Clean items that may get your secretions on them such as cell phones , ipads, computer mouse, television remotes. Once you start to feel better, change your pillowcase and your toothbrush If you develop fever, uncontrolled vomiting, pain or any other concerns it is recommended you go to the emergency department for further evaluation and treatment - Billing Disposition and Condition Condition: STABLE Disposition: Home
[2019-06-21 21:21] VITALS: BP 136/76
[2019-06-21] MEDS ORDERED: Ondansetron ODT TAB* 4 MG PO ONE (21:34)
== END 2019-06-21 21:58 | disposition home or self-care (01) ==
LOC: UCEAST 21:02
DX: R11.2 Nausea with vomiting, unspecified (principal); R19.7 Diarrhea, unspecified; F17.210 Nicotine dependence, cigarettes, uncomplicated
CPT/HCPCS: 81003; 84702; 87077; 87086; 87186; 99212; A9270-GY; G0463

== ENCOUNTER 2019-08-06 18:13 | Emergency (ER) | payer OTHER ==
[2019-08-06 18:34] VITALS: BP 112/65
[2019-08-06] MEDS ORDERED: Ketorolac INJ* 30 MG/ML 1 ML VIAL IM ONE (19:06)
--- NOTE | 2019-08-06 19:08 | UC ---
Cardiac HPI - HPI Summary HPI Summary: 44 yo female with the onset of left side cp yesterday radiates to scapula hurts more when she uses her left arm no sob no diaphoresis no n/v/d - History of Current Complaint Chief Complaint: UCChestPain Stated Complaint: CHEST PAIN Time Seen by Provider: 08/06/19 19:00 Hx Obtained From: Patient Hx Last Menstrual Period: 08/02/19 Onset/Duration: Gradual Onset Timing: Constant Initial Severity: Severe Current Severity: Severe Pain Intensity: 10 Chest Pain Location: Left Anterior Character: Sharp/Stabbing Aggravating Factor(s): Movement, Deep Breaths Alleviating Factor(s): Nothing Associated Signs & Symptoms: Positive: Chest Pain - Allergy/Home Medications Allergies/Adverse Reactions: Allergies Allergy/AdvReac Type Severity Reaction Status Date / Time No Known Allergies Allergy Verified 06/21/19 21:19 PMH/Surg Hx/FS Hx/Imm Hx Previously Healthy: Yes Other History Of: Negative For: Anticoagulant Therapy - Surgical History Surgical History: Yes Surgery Procedure, Year, and Place: kidney stones removed on right, kidney "blasting" on the left - 2009 - Family History Known Family History: Positive: Unknown, Diabetes, Non-Contributory Negative: Cardiac Disease, Hypertension - Social History Alcohol Use: Rare Substance Use Type: None Smoking Status (MU): Light Every Day Tobacco Smoker Type: Cigarettes Amount Used/How Often: 5 CIG/DAY Length of Time of Smoking/Using Tobacco: 5 years Have You Smoked in the Last Year: No When Did the Patient Quit Smoking/Using Tobacco: 1.5 years ago Household Exposure Type: Cigarettes Review of Systems All Other Systems Reviewed And Are Negative: Yes Constitutional: Positive: Negative Skin: Positive: Negative Eyes: Positive: Negative ENT: Positive: Negative Respiratory: Positive: Negative Cardiovascular: Positive: Chest Pain Gastrointestinal: Positive: Negative Genitourinary: Positive: Negative Motor: Positive: Negative Neurovascular: Positive: Negative Musculoskeletal: Positive: Negative Neurological: Positive: Negative Psychological: Positive: Negative Physical Exam Vital Signs: Initial Vital Signs Temp 99.5 F 08/06/19 18:28 Pulse 84 08/06/19 18:28 Resp 16 08/06/19 18:28 BP 112/65 08/06/19 18:28 Pulse Ox 97 08/06/19 18:28 Diagnostics - Radiology No standard instances Radiology Interpretation Completed By: ED Physician Summary of Radiographic Findings: cxr:NAD - EKG Cardiac Rate: NL Cardiac Rhythm: Sinus: Normal Ectopy: None ST Segment: Normal - Clinical Impression Provider Diagnosis: Acute chest wall pain Discharge ED - Sign-Out/Discharge Documenting (check all that apply): Patient Departure All imaging exams completed and their final reports reviewed: No - Discharge Plan Condition: Stable Disposition: HOME Patient Education Materials: Chest Wall Pain (ED) Forms: *Work Release Referrals: [facility] [place] [facility] [Outside] - 2 Weeks Additional Instructions: rest heat ibuprofen 200mg 3 pills 4x day with food for pain recheck for new or worsening symptoms or if not completely better in 2 weeks official XR reading pending - Billing Disposition and Condition Condition: STABLE Disposition: Home
--- NOTE | 2019-08-07 15:11 | UC ---
- Progress Note Progress Note: chest xray read as No sign of acute cardiopulmonary disease by Dr. Tavarez, no change from wet read and no change in plan. Course/Dx - Diagnoses Provider Diagnoses: Acute chest wall pain Discharge ED - Sign-Out/Discharge Documenting (check all that apply): Post-Discharge Follow Up All imaging exams completed and their final reports reviewed: Yes - Discharge Plan Condition: Stable Disposition: HOME Patient Education Materials: Chest Wall Pain (ED) Forms: *Work Release Referrals: [facility] [place] [facility] [Outside] - 2 Weeks Additional Instructions: rest heat ibuprofen 200mg 3 pills 4x day with food for pain recheck for new or worsening symptoms or if not completely better in 2 weeks official XR reading pending - Billing Disposition and Condition Condition: STABLE Disposition: Home
== END 2019-08-06 20:31 | disposition home or self-care (01) ==
LOC: UCEAST 18:13
DX: R07.89 Other chest pain (principal); F17.210 Nicotine dependence, cigarettes, uncomplicated; M25.519 Pain in unspecified shoulder
CPT/HCPCS: 71046; 93005; 96372; 99211; G0463; J1885

== ENCOUNTER 2019-09-10 21:02 | Emergency (ER) | payer MEDICAID, OTHER ==
--- NOTE | 2019-09-10 21:41 | UC ---
Upper Extremity HPI - HPI Summary HPI Summary: 44-year-old woman comes in with chief complaint of left arm pain numbness and weakness. This morning at work patient was making a bed and had sudden onset of left arm pain numbness weakness. The pain is the worst in the left elbow. Pain is worse with movement of the left arm especially the elbow and shoulder. Pains also into the left pectoral upper chest region. No complaint of any neck pain. Patient has felt numbness and weakness and was having difficulty picking things up. The numbness weakness has improved however patient continues to have pain in the left arm. Patient denies any concern of having a heart attack. - History of Current Complaint Stated Complaint: ARM PAIN Time Seen by Provider: 09/10/19 21:26 Hx Last Menstrual Period: 08/02/19 - Allergies/Home Medications Allergies/Adverse Reactions: Allergies Allergy/AdvReac Type Severity Reaction Status Date / Time No Known Allergies Allergy Verified 06/21/19 21:19 PMH/Surg Hx/FS Hx/Imm Hx Previously Healthy: Yes Other History Of: Negative For: Anticoagulant Therapy - Surgical History Surgical History: Yes Surgery Procedure, Year, and Place: kidney stones removed on right, kidney "blasting" on the left - 2009 - Family History Known Family History: Positive: Unknown, Diabetes, Non-Contributory Negative: Cardiac Disease, Hypertension - Social History Alcohol Use: Rare Substance Use Type: None Smoking Status (MU): Light Every Day Tobacco Smoker Type: Cigarettes Amount Used/How Often: 5 CIG/DAY Length of Time of Smoking/Using Tobacco: 5 years Have You Smoked in the Last Year: No When Did the Patient Quit Smoking/Using Tobacco: 1.5 years ago Household Exposure Type: Cigarettes Review of Systems All Other Systems Reviewed And Are Negative: Yes Constitutional: Positive: Negative Skin: Positive: Negative Eyes: Positive: Negative ENT: Positive: Negative Respiratory: Positive: Negative Cardiovascular: Positive: Chest Pain - see hpi Gastrointestinal: Positive: Negative Motor: Positive: Other - see hpi Neurovascular: Positive: Other - see hpi Musculoskeletal: Positive: Other: - see hpi Neurological: Positive: Other - see hpi Psychological: Positive: Negative Is Patient Immunocompromised?: No Physical Exam Triage Information Reviewed: Yes Appearance: Well-Appearing, Well-Nourished, Pain Distress - mild with rom and exam of left arm Vital Signs Reviewed: Yes Eye Exam: Normal Eyes: Positive: Conjunctiva Clear Neck: Positive: Supple, Nontender Respiratory: Positive: Lungs clear, Normal breath sounds, No respiratory distress Cardiovascular: Positive: RRR Musculoskeletal: Positive: Other: - Both radial pulses are normal. Normal capillary refill both arms. On my examination sensation is normal. Finger wrist and elbow range of motion is full. However patient does have pain with movement of the left elbow to include pain with supination. Shoulder range of motion is equal bilaterally however the patient reports pain in the shoulder when she is moving her left shoulder. Patient is mildly tender to palpation left upper chest. Strength is normal in both upper extremities on my exam. Neurological: Positive: Alert Psychological: Positive: Age Appropriate Behavior Skin Exam: Normal Diagnostics - EKG Cardiac Rate: NL - at 2154 Cardiac Rhythm: Sinus: Normal - 72bpm Ectopy: None ST Segment: Normal Upper Extremity Course/Dx - Course Course Of Treatment: Discussed the EKG and x-rays with the patient. I do not appreciate any ischemic changes on the EKG. On the left elbow and left shoulder x-rays do not see any acute disease process. Radiologist reading is pending. Plan is ibuprofen and lidocaine patches can also ice the area and follow up with occupational medicine or sports medicine or orthopedics. About the patient know if anything got worse she had chest pain or her arm was weak and numb she needed to get reevaluated again right away. - Differential Dx/Diagnosis Provider Diagnosis: Left arm pain, Arm paresthesia, left Discharge ED - Sign-Out/Discharge Documenting (check all that apply): Patient Departure All imaging exams completed and their final reports reviewed: No - Discharge Plan Condition: Stable Disposition: HOME Prescriptions: Ibuprofen TAB* [Motrin TAB* 600 MG] 600 mg PO Q6H PRN #30 tab PRN Reason: Pain - Moderate Lidocaine PATCH 5%* [Lidoderm 5% Patch*] 1 patch TRANSDERM DAILY #10 patch Patient Education Materials: Arm Pain (ED), Paresthesia (ED) Forms: *Work Release Referrals: Damon Dias MD [Medical Doctor] - Jacy Acosta MD [Medical Doctor] - Sports [facility] [Provider Group] [facility] [place] [facility] [Outside] Additional Instructions: FOLLOW UP WITH DR. DIAS OCCUPATIONAL MEDICINE OR SPORTS MEDICINE OR ORTHOPEDICS. GET REEVALUATED SOONER IF NOT IMPROVED OR WORSE: CHEST PAIN, WEAKNESS OR NUMBNESS IT DOES NOT RESOLVE, OR ANY QUESTIONS OR CONCERNS. - Billing Disposition and Condition Condition: STABLE Disposition: Home
[2019-09-10 22:04] VITALS: BP 117/71
[2019-09-10] MEDS ORDERED: Ibuprofen TAB* 600 MG PO ONE (22:25)
--- NOTE | 2019-09-11 21:29 | UC ---
- Progress Note Progress Note: XR wet read correct Course/Dx - Diagnoses Provider Diagnoses: Left arm pain, Arm paresthesia, left Discharge ED - Sign-Out/Discharge Documenting (check all that apply): Post-Discharge Follow Up All imaging exams completed and their final reports reviewed: Yes - Discharge Plan Condition: Stable Disposition: HOME Prescriptions: Ibuprofen TAB* [Motrin TAB* 600 MG] 600 mg PO Q6H PRN #30 tab PRN Reason: Pain - Moderate Lidocaine PATCH 5%* [Lidoderm 5% Patch*] 1 patch TRANSDERM DAILY #10 patch Patient Education Materials: Paresthesia (ED), Arm Pain (ED) Forms: *Work Release Referrals: [facility] [Provider Group] [facility] [Outside] Damon Dias MD [Medical Doctor] - Jacy Acosta MD [Medical Doctor] - Additional Instructions: FOLLOW UP WITH DR. DIAS OCCUPATIONAL MEDICINE OR SPORTS MEDICINE OR ORTHOPEDICS. GET REEVALUATED SOONER IF NOT IMPROVED OR WORSE: CHEST PAIN, WEAKNESS OR NUMBNESS IT DOES NOT RESOLVE, OR ANY QUESTIONS OR CONCERNS. - Billing Disposition and Condition Condition: STABLE Disposition: Home
== END 2019-09-10 22:35 | disposition home or self-care (01) ==
LOC: UCEAST 21:02
DX: M79.602 Pain in left arm (principal); R20.2 Paresthesia of skin; R07.9 Chest pain, unspecified; F17.210 Nicotine dependence, cigarettes, uncomplicated
CPT/HCPCS: 93005; 99212; A9270-GY; G0463

== ENCOUNTER 2019-11-06 20:00 | Emergency (ER) | payer MEDICAID, OTHER ==
[2019-11-06 21:35] LABS: ABS Basophils 0.1 10^3/ul (0-0.2); ABS Eosinophils 0.3 10^3/ul (0-0.6); ABS Lymphocytes 3.2 10^3/ul (1.0-4.8); ABS Monocytes 0.5 10^3/ul (0-0.8); ABS Neutrophils 4.5 10^3/ul (1.5-7.7); Eosinophil % 4.1 %; Hematocrit 38 % (35-47); Hemoglobin 12.9 g/dL (12.0-16.0); Lymphocyte % 36.9 %; Mean Corpuscular HGB Conc 34 g/dL (31-36); Mean Corpuscular Hemoglobin 32 pg (27-31); Mean Corpuscular Volume 94 fL (80-97); Mean Platelet Volume 7.8 fL (7.4-10.4); Platelet Count 353 10^3/uL (150-450); Red Blood Count 4.05 10^6 /uL (3.70-4.87); Red Cell Distribution Width 15 % (10-15); White Blood Count 8.6 10^3/uL (3.5-10.8)
[2019-11-06 21:51] LABS: ALT 8 U/L (7-52); AST 11 U/L (13-39); Albumin 3.9 g/dL (3.2-5.2); Albumin/Globulin Ratio 1.3 (1-3); Alkaline Phosphatase 76 U/L (34-104); Anion Gap 8 mmol/L (2-11); BUN/Creatinine Ratio 16.7 (8-20); Blood Urea Nitrogen 12 mg/dL (6-24); CO2 Carbon Dioxide 26 mmol/L (22-32); Calcium 9.1 mg/dL (8.6-10.3); Chloride 103 mmol/L (101-111); EGFR African American 106.5 (>60); Globulin 3.1 g/dL (2-4); Glucose 91 mg/dL (70-100); Potassium 3.8 mmol/L (3.5-5.0); Sodium 137 mmol/L (135-145)
[2019-11-06 21:58] LABS: HCG Pregnancy < 0.60 mIU/mL
--- NOTE | 2019-11-06 23:18 | ED ---
GI/ HPI - HPI Summary HPI Summary: Patient complains of significantly heavier menstrual bleeding than usual 2 days. States she is bleeding around tampons. Denies vaginal pain, discharge, fever, abdominal pain, N/V, change in BM, change in urine, SOB, CP, fatigue.. Medical history is none. - History of Current Complaint Chief Complaint: EDVaginalBleeding Time Seen by Provider: 11/06/19 23:06 Stated Complaint: VAGINAL BLEEDING PER PT Hx Obtained From: Patient Hx Last Menstrual Period: 08/02/19 Onset/Duration: Started Days Ago Timing: Constant Severity: Moderate Current Severity: Moderate Vaginal Bleeding Description: Bright Red Pain Intensity: 0 Associated Signs and Symptoms: Positive: Negative Additional Signs & Symptoms: Positive: Vaginal Bleeding - Allergy/Home Medications Allergies/Adverse Reactions: Allergies Allergy/AdvReac Type Severity Reaction Status Date / Time No Known Allergies Allergy Verified 06/21/19 21:19 PMH/Surg Hx/FS Hx/Imm Hx Endocrine/Hematology History: Denies: Hx Anticoagulant Therapy, Hx Blood Disorders, Hx Diabetes, Hx Thyroid Disease Cardiovascular History: Denies: Hx Hypertension Respiratory History: Denies: Hx Asthma, Hx Chronic Obstructive Pulmonary Disease (COPD) GI History: Denies: Hx Ulcer History: Reports: Hx Kidney Stones Sensory History: Denies: Hx Eye Prosthesis Opthamlomology History: Denies: Hx Legally Blind EENT History: Denies: Hx Deafness Neurological History: Denies: Hx Dementia - Surgical History Surgery Procedure, Year, and Place: kidney stones removed on right, kidney "blasting" on the left - 2009 Infectious Disease History: No Infectious Disease History: Denies: Hx Clostridium Difficile, Hx Hepatitis, Hx Human Immunodeficiency Virus (HIV), Hx of Known/Suspected MRSA, Hx Shingles, Hx Tuberculosis, Hx Known/ Suspected VRE, Hx Known/Suspected VRSA, History Other Infectious Disease, Traveled Outside the [place] in Last 30 Days - Family History Known Family History: Positive: Unknown, Diabetes, Non-Contributory Negative: Cardiac Disease, Hypertension - Social History Alcohol Use: Rare Hx Substance Use: No Substance Use Type: Reports: None Hx Tobacco Use: Yes Smoking Status (MU): Light Every Day Tobacco Smoker Type: Cigarettes Amount Used/How Often: 5 CIG/DAY Length of Time of Smoking/Using Tobacco: 5 years Have You Smoked in the Last Year: No Review of Systems Constitutional: Negative Eyes: Negative ENT: Negative Cardiovascular: Negative Respiratory: Negative Gastrointestinal: Negative Genitourinary: Negative Musculoskeletal: Negative Skin: Negative Neurological: Negative Psychological: Normal All Other Systems Reviewed And Are Negative: Yes Physical Exam Triage Information Reviewed: Yes Vital Signs On Initial Exam: Initial Vitals Temp Pulse Resp BP Pulse Ox 97.6 F 84 18 133/85 100 11/06/19 20:03 11/06/19 20:03 11/06/19 20:03 11/06/19 20:03 11/06/19 20:03 Vital Signs Reviewed: Yes Appearance: Positive: Well-Appearing Skin: Positive: Warm Head/Face: Positive: Normal Head/Face Inspection Eyes: Positive: Normal Neck: Positive: Supple Respiratory/Lung Sounds: Positive: Clear to Auscultation Cardiovascular: Positive: Normal Abdomen Description: Positive: Nontender Musculoskeletal: Positive: Normal Neurological: Positive: Normal Psychiatric: Positive: Normal AVPU Assessment: Alert - Peever Coma Scale Best Eye Response: 4 - Spontaneous Best Motor Response: 6 - Obeys Commands Best Verbal Response: 5 - Oriented Coma Scale Total: 15 Procedures - Sedation Patient Received Moderate/Deep Sedation with Procedure: No Diagnostics - Vital Signs Vital Signs Temp Pulse Resp BP Pulse Ox 11/06/19 22:14 97.6 F 74 18 116/84 99 11/06/19 20:03 97.6 F 84 18 133/85 100 - Laboratory Lab Results: Lab Results 11/06/19 11/06/19 Range/Units 21:15 21:15 WBC 8.6 (3.5-10.8) 10^3/uL RBC 4.05 (3.70-4.87) 10^6 /uL Hgb 12.9 (12.0-16.0) g/dL Hct 38 (35-47) % MCV 94 (80-97) fL MCH 32 H (27-31) pg MCHC 34 (31-36) g/dL RDW 15 (10-15) % Plt Count 353 (150-450) 10^3/uL MPV 7.8 (7.4-10.4) fL Neut % (Auto) 52.3 % Lymph % (Auto) 36.9 % [place]idan % (Auto) 5.9 % Eos % (Auto) 4.1 % Baso % (Auto) 0.8 % Absolute Neuts (auto) 4.5 (1.5-7.7) 10^3/ul Absolute Lymphs (auto) 3.2 (1.0-4.8) 10^3/ul Absolute Monos (auto) 0.5 (0-0.8) 10^3/ul Absolute Eos (auto) 0.3 (0-0.6) 10^3/ul Absolute Basos (auto) 0.1 (0-0.2) 10^3/ul Absolute Nucleated RBC 0.0 10^3/ul Nucleated RBC % 0.0 Sodium 137 (135-145) mmol/L Potassium 3.8 (3.5-5.0) mmol/L Chloride 103 (101-111) mmol/L Carbon Dioxide 26 (22-32) mmol/L Anion Gap 8 (2-11) mmol/L BUN 12 (6-24) mg/dL Creatinine 0.72 (0.51-0.95) mg/dL Est GFR ( Amer) 106.5 (>60) Est GFR (Non-Af Amer) 88.0 (>60) BUN/Creatinine Ratio 16.7 (8-20) Glucose 91 (70-100) mg/dL Calcium 9.1 (8.6-10.3) mg/dL Total Bilirubin 0.20 (0.2-1.0) mg/dL AST 11 L (13-39) U/L ALT 8 (7-52) U/L Alkaline Phosphatase 76 (34-104) U/L Total Protein 7.0 (6.4-8.9) g/dL Albumin 3.9 (3.2-5.2) g/dL Globulin 3.1 (2-4) g/dL Albumin/Globulin Ratio 1.3 (1-3) Beta HCG, Quant < 0.60 mIU/mL Result Diagrams: 11/06/19 21:15 11/06/19 21:15 Lab Statement: Any lab studies that have been ordered have been reviewed, and results considered in the medical decision making process. GIGU Course/Dx - Course Course Of Treatment: Patient complains of significantly heavier menstrual bleeding than usual 2 days. States she is bleeding around tampons. Denies vaginal pain, discharge, fever, abdominal pain, N/V, change in BM, change in urine, SOB, CP, fatigue.. Medical history is none. Vital signs were normal limits. Labs unremarkable. Follow up with [facility]. - Diagnoses Provider Diagnoses: Dysfunctional uterine bleeding Discharge ED - Sign-Out/Discharge Documenting (check all that apply): Patient Departure - Discharge Plan Condition: Stable Disposition: HOME Patient Education Materials: Dysfunctional Uterine Bleeding (ED) Referrals: No Primary Care Phys,NOPCP [Primary Care Provider] - Elana Caal MD [Medical Doctor] - Additional Instructions: Tomorrow morning called clinic of [facility] Dr. Caal for further evaluation of heavy vaginal bleeding. Return to the ED for any new or worsening symptoms. - Billing Disposition and Condition Condition: STABLE Disposition: Home
[2019-11-06 23:43] VITALS: BP 116/64
== END 2019-11-06 23:41 | disposition home or self-care (01) ==
LOC: ED 20:00
DX: N93.8 Other specified abnormal uterine and vaginal bleeding (principal); F17.210 Nicotine dependence, cigarettes, uncomplicated; Z87.442 Personal history of urinary calculi
CPT/HCPCS: 36415; 80053; 84702; 85025; 99282